=== PATIENT | male | born 1940 | race American Indian/Alaskan Native ===

== ENCOUNTER 2018-01-21 09:05 | Day surgery (SDC) | payer MEDICARE ==
[2018-01-21] MEDS ORDERED: Lidocaine 2% Jelly (Uro-Jet) ONE (10:06)
[2018-01-21] MEDS ORDERED: Iohexol 240 (50 ml) ONE (10:06)
[2018-01-21] MEDS ORDERED: cefTRIAXone IV 1 gm in Dextros 50 ML IVPB ONE (10:06)
[2018-01-21] MEDS ORDERED: Propofol 10 mg/ml Inj (20 ML) ONE (10:15)
[2018-01-21] MEDS ORDERED: Midazolam 2 MG/2 ML VIAL ONE (10:15)
[2018-01-21 11:17] VITALS: BMI 25.2
[2018-01-21] MEDS ORDERED: Oxycodone/Acetaminophen 5/325 mg Tab PO PRN (11:17)
[2018-01-21] MEDS ORDERED: HYDROmorphone 0.5 mg/0.5 ml ISec IVP PRN (11:33)
[2018-01-21 12:42] VITALS: RESP 16
--- NOTE | 2018-01-21 14:26 | RAD ---
Date of service: 01/21/2018 PROCEDURE: Intraoperative Fluoroscopy. HISTORY: HEMATURIA AND RETENTION FINDINGS: Fluoroscopic assistance was provided for left retrograde. Please refer to the operative report from TAYE Charlton, , MD [facility]. Total fluoroscopic time (continuous mode) utilized during the procedure 6.7 (seconds).
[2018-01-21 14:30] VITALS: BP 113/64; PULSE 62; TEMP 97.8; O2SAT 97
--- NOTE | 2018-01-21 14:37 | RAD ---
Date of service: 01/21/2018 HISTORY: HEMATURIA AND RETENTION COMPARISON: No prior. FINDINGS: BOWEL: Normal. No obstruction. No free air. BONES: Normal. OTHER FINDINGS: None. IMPRESSION: No significant or acute findings to account for/ related to the clinical presentation.
--- NOTE | 2018-01-21 23:04 | OP ---
Copied To: Ryan Goldberg MD Attending MD: Ryan Goldberg MD PROCEDURE DATE: 01/21/2018 PREOPERATIVE DIAGNOSES: Voiding dysfunction, decreased force of stream, nocturia, and hematuria. POSTOPERATIVE DIAGNOSES: Voiding dysfunction, decreased force of stream, nocturia, and hematuria. Visually occlusive prostate. No urethral strictures noted. No bladder cancer identified. PROCEDURES: Cystoscopy, bilateral retrograde pyelogram. The right retrograde does not fill out as well. There were no complications but the left side looks all normal. SURGEON: Ryan Goldberg MD ESTIMATED BLOOD LOSS: Less than 10 mL. SPECIMEN: None. COMPLICATIONS: There were no complications. FINDINGS: 1. Normal urethra with no strictures. The veru is visually occlusive but fairly large prostate. There is a good amount of intravesical lobe noted. The ureter orifice identified. The left side, the retrograde pyelogram was within normal limits. Right side, I was having difficulty getting the contrast done. We attempted gently but after trying I did not want to do any damage. 2. The bladder itself was inspected carefully. There is no bladder cancer identified. Just a visually occlusive prostate that is fairly juicy and bloody. See the plans listed at the end, but I am going to just mention here quickly. I believe, the patient will benefit from a transurethral resection of the prostate with a GreenLight laser. We will discuss with him other possibility. We will also discuss microwave thermal therapy if he going to tolerate this. He did not want a cystoscope in the office because he said that he does not want things placed in his private area. Further plans will follow. DESCRIPTION OF PROCEDURE: After obtaining informed consent, the patient was placed on the table, routine monitors were placed, time-out was called to confirm the patient and positioning. We introduced the cystoscope via the urethra. Antibiotic prophylaxis were used. We introduced the cystoscope via urethra under direct vision. There were no specific abnormalities. Anterior view is normal. No strictures, and the veru is visually occlusive. It is about 3 cm and it is fairly juicy, actually at this time passing the scope, there is a little blood noted. We identified the ureteral orifices. We inspected the bladder carefully. The bladder is not really trabeculated. No abnormalities appreciated. We identified the orifice, left retrograde pyelogram performed which is within normal limit. On the right side, the contrast did not go up as well . It was difficult to get the ____. I did not want to push any further. We inspected carefully. No abnormalities. Rectal exam has shown 20-30 grams of prostate, soft, smooth. No nodules. The patient tolerated the procedure well without complications. In summary, Mr. Lin is a very pleasant gentleman who has voiding dysfunction, decreased force of stream, nocturia, not responding to medical therapy. I am going to discuss with him the microwave thermal therapy. I am going to also discuss GreenLight Laser therapy. Further plans to follow. Ryan Goldberg MD
--- NOTE | 2018-01-21 23:34 | HP ---
Copied To: Ryan Goldberg MD Attending MD: Ryan Goldberg MD UROLOGY ADMISSION HISTORY AND PHYSICAL REASON FOR ADMISSION: Treatment of kidney stones. HISTORY OF PRESENT ILLNESS: Mr. Lin is a very pleasant gentleman who is 77 years old. He has voiding dysfunction and microhematuria, decreased force of stream, nocturia. Not responding well to medications. Here today for cysto and retrograde pyelogram. We evaluated prostate and then further plans will follow. He is here for cysto and retrograde pyelogram. PAST MEDICAL AND SURGICAL HISTORY: As listed on the chart. No history of HI or CVA. SOCIAL HISTORY: Unremarkable. MEDICATIONS: See the chart. ALLERGIES: NONE. REVIEW OF SYSTEMS: No weight loss, chest pain, or shortness of breath. PHYSICAL EXAMINATION: GENERAL: A well-nourished male, in no apparent distress. VITAL SIGNS: Within normal limits, included in the chart. LUNGS: Clear. ABDOMEN: Overall soft and nontender. No flank mass appreciated. GENITOURINARY: Normal male phallus without discharge. No testicular mass. RECTAL: Revealed 20 g prostate. Prostate is soft and smooth. LABORATORY DATA: See chart. BUN and creatinine noted. DIAGNOSES: Voiding dysfunction, likely hematuria, decreased force of stream, irritative and obstructive urinary complaints. A very pleasant 77-year-old gentleman who has the above history. He has voiding dysfunction, irritative and obstructive urinary complaints, more obstructive in nature. Decreased force of stream. Incomplete bladder emptying. Nocturia. Not responding well to medications. The plan for today is cystoscopy, retrograde pyelogram. Further plans will follow. ADDENDUM Risks and benefits were discussed with the patient at length. PLAN: As follows: 1. Antibiotic prophylaxis. 2. Cystoscopy. 3. Retrograde pyelogram. 4. Further plans may be a biopsy. ADDENDUM: See the operative report. We will discuss the options with the patient. We are going recommend to consider further therapy either with microwave thermal therapy or PVP GreenLight laser treatment. See the operative report. He has a visually occlusive prostate. Ryan Goldberg MD
== END 2018-01-21 13:31 | disposition home or self-care (01) ==
LOC: C.SDS 09:05
PROVIDERS: ATTEND Urology
DX: R31.29 Other microscopic hematuria (principal); R33.9 Retention of urine, unspecified; R35.1 Nocturia; N40.1 Benign prostatic hyperplasia with lower urinary tract symptoms
CPT/HCPCS: 52005; 74018; J0696; Q9966

== ENCOUNTER 2018-03-18 07:35 | Observation (INO) | payer MEDICARE ==
[2018-03-18] MEDS ORDERED: cefTRIAXone 1 gm 1 GM/100 ML BAG IVPB ONE (09:27)
[2018-03-18] MEDS ORDERED: Lidocaine 2% Jelly (Uro-Jet) ONE (09:27)
[2018-03-18] MEDS ORDERED: Propofol 10 mg/ml Inj (20 ML) ONE (09:32)
[2018-03-18] MEDS ORDERED: Midazolam 2 MG/2 ML VIAL ONE (09:32)
[2018-03-18] MEDS ORDERED: ePHEDrine 50 mg/ml Inj ONE (10:24)
[2018-03-18 11:12] LABS: HEMOGLOBIN 12.8 g/dL (12.0-18.0); MEAN CELL VOLUME 94.3 fL (80.0-94.0); MEAN CORPUSCULAR HEMOGLOBIN 31.6 pg (27.0-31.0); MEAN CORPUSCULAR HGB CONC 33.5 g/dL (33.0-37.0); RBC 4.03 Mil/uL (4.40-5.90); RED CELL DISTRIBUTION WIDTH 14.4 % (11.5-14.5)
[2018-03-18 11:25] LABS: ALB/GLOB RATIO 1.4 (1.0-2.1); ALBUMIN 3.6 g/dL (3.5-5.0); ALT/SGPT 25 U/L (21-72); AST/SGOT 18 U/L (17-59); BLOOD UREA NITROGEN 18 mg/dL (9-20); CALCIUM 8.8 mg/dl (8.6-10.4); GFR NON-AFRICAN AMERICAN 54
[2018-03-18] MEDS: HYDROmorphone 0.5 mg/0.5 ml ISec IVP PRN ×2 (11:34→12:41)
[2018-03-19] MEDS: Oxycodone/Acetaminophen 5/325 mg Tab PO PRN ×3 (00:09→20:14)
[2018-03-19 00:29] VITALS: RESP 20
[2018-03-20 04:32] VITALS: TEMP 98.6
[2018-03-20 08:17] VITALS: BP 146/77; PULSE 81; O2SAT 95
--- NOTE | 2018-03-22 09:45 | PN ---
DATE: 03/19/2018 See the operative note and the history and physical on 03/18/2018. The patient is resting comfortably. It is now 03/19/2018, postoperative day 1. He is still . The urine is essentially clear via the urethra. With the CBI, just barely dripping. I do not even think it is working, and I think it is dripping. It is still connected. See the plan forward. The patient has mild complaints of pain. Overall, within normal limits. He is currently sitting across the unit bed. The remainder of past medical and surgical is otherwise listed with no changes. The abdomen is overall soft. The patient is to have a bowel movement. DIAGNOSES: Voiding dysfunction, urine retention, incomplete bladder, and he is status post patient's preference, and he wants to go home without the catheter. So we feel a little uncomfortable to remove it at this point. PLAN: As follows: 1. Maintain the patient in the hospital. Need to monitor more closely. He does not feel comfortable to take the catheter home, but I feel uncomfortable to take it out, so medically we are going to keep him in the hospital for 1 more day. We will give him a trial of void on 03/20/2018 and see if he can void We are going to take it out at that point. We will also assist him with medication for a bowel movement, and then further plans will follow. I explained this to the patient at length. And as well explained to his daughter. So the plan is as follows: 1. Continue antibiotics. 2. Maintain the Avery. 3. Stop the CBI. 4. Milk of magnesia. 5. A trial of void on 03/20/2018, and then, subsequent plan for discharge home if everything is well. ADDENDUM: The patient was subsequently given a voiding trial on 03/20/2018, and he is being discharged home. Ryan Goldberg MD
--- NOTE | 2018-03-22 16:37 | HP ---
REASON FOR ADMISSION: Treatment of retention. HISTORY OF PRESENT ILLNESS: A very pleasant 77-year-old gentleman who has voiding dysfunction, decreased force of stream, nocturia, incomplete bladder emptying. We discussed various options. We tried medical therapy. It is not working well. After discussing further options, he is here today for a PVP GreenLight laser. PAST MEDICAL AND SURGICAL HISTORY: Listed on the chart. Medical clearance is also listed. No history of IN or CVA. SOCIAL HISTORY: Essentially unremarkable. MEDICATIONS: See chart. ALLERGIES: . Just want to make a note, he has got his medical clearance in the chart. That medical clearance notes to stop blood thinners. It is very difficulty to tell what he is taking or not and also he is somewhat confused. When questioned specifically on Plavix, it seems like he is taking a dose what he reports is every other day, on Thursday, Thursday, Thursday, three times a day, which would sound like some of the medication other than Plavix. There is nothing listed on the chart that indicates that he is taking the Plavix and then when he was asked he said he stopped taking it three days ago and then asked five days ago. See the plans listed below. But I do want to mention quickly while I am dictating now that during the procedure itself, see below the plans that we made the decision to proceed with the procedure, mostly at his request. There was not excessive bleeding at all. The remainder of the medications all listed. PHYSICAL EXAMINATION: GENERAL: Well-nourished male in no apparent distress. VITAL SIGNS: Noted to be within normal limits. LUNGS: Clear. HEART: Normal S1 and S2. ABDOMEN: Overall soft. Nontender. There is no evidence of distention. GENITOURINARY: He has normal phallus with no testicular masses. RECTAL: A 30 g prostate, soft and smooth. DIAGNOSES: Voiding dysfunction, decreased force of stream, obstructive and irritated complaining of incomplete bladder emptying. We discussed the options with the patient. Risks, benefits and alternatives were discussed at length. At this point, the plan is as follows: We are going to use GreenLight laser energy to scrape his prostate. We did discuss with the patient the risks, benefits, and treatment alternatives. We discussed the risks of bleeding. We discussed the possibility for rescheduling. The patient would like us to proceed. So, we are going to proceed. Again, it was difficult to assess his exact medications that he is currently taking or not. So towards this end, the plan is as follows: We made arrangements for the GreenLight energy. PLAN: As follows: 1. The patient will receive antibiotic prophylaxis. 2. We are going to proceed with photo vaporization, GreenLight laser and then further plans will follow. I explained to the patient given his age and given concerns of bleeding that after the procedure, most likely we will keep him in the hospital to monitor. See an addendum to this note and see the operative note: The procedure itself went well with minimal blood loss with the patient wide open. Given his age, medical condition, the questions about bleeding, we decided to keep him in the hospital. Ryan Goldberg MD
--- NOTE | 2018-03-22 20:33 | OP ---
PROCEDURE DATE: 03/18/2018 PREOPERATIVE DIAGNOSES: Urinary retention, voiding dysfunction, irritated and obstructive urinary complaints and incomplete bladder emptying. POSTOPERATIVE DIAGNOSES: Urinary retention, voiding dysfunction, irritated and obstructive urinary complaints and incomplete bladder emptying. PROCEDURE: Photovaporization and GreenLight laser energy used to do a transurethral resection of the prostate. COMPLICATIONS: There were no complications. BLOOD LOSS: Less than 25 mL. SURGEON: Ryan Goldberg MD At the termination, the incision from the verumontanum end is wide open. The veru is grossly intact. Landmarks are all intact. Ureteral orifices are intact. At the termination of the procedure, we stopped the irrigation and so there is no bleeding. Any bleeding that occurred during the procedure, we got with the coagulation. Essentially, no bleeding actually. At the termination, the patient was nicely wide open through the pictures and the chart. INDICATIONS: See history and physical for further details. In brief, it is a very pleasant 77-year-old gentleman, medical therapy is not working. We discussed options. He had decreased force of stream, irritated and obstructive complaints, more obstructive in nature. He is not happy with the results of the medication, so we discussed the options. I do want to mention briefly of medical clearance, the medical clearance discussed with staff and medications, same-day surgery, the preoperative teaching people also as well. The patient reports different answers to different questions regarding the use of Plavix. I had mentioned history and physical after discussing the options and discussing the possibility just to reschedule one with certainty of the medications. Really, it is not clear for we are going to proceed. I do want to mention that very briefly the patient after beginning with the laser, there is essentially really no bleeding as if he was on a medication. Therefore we proceeded gently and carefully and we did not go down to deep capsule, but we did open the patient wide open very nicely.. PROCEDURE: After obtaining informed consent, the patient the placed on the OR table. Routine monitor placed. Time-out was called that confirmed patient positioning and antibiotic prophylaxis. We could easily introduce the scope with the visual obturator. We identified a landmark to veru, it was visually occlusive, inspected 2 to 3 cm in length. Reasonably large. We identified the landmarks, ureteral orifices, and etc. We now began at 80 boc[address]egra. We actually kept it at 80 bocanegra the entire time for the slower low energy. To assess this with any form of bleeding. We started from 5 to 7 and opened it nicely demonstrating 7 and 11 and 5 through 1. He is open nicely and widely and there is almost no bleeding. We then turned our attention to our 11 to 1. We keep checking our landmarks and we worked our way all the way down to the veru. At this final procedure, the patient was nice widely open through the picture that are included in the chart. The patient tolerated the procedure without complication. ADDENDUM: Given the history, the questions and his age and medical conditions etc, we decided we are going to keep the patient overnight for a followup monitoring and then further plans will follow. Ryan Goldberg MD
--- NOTE | 2018-03-23 23:38 | CARD ---
APPROVED REPORT Date of service: 03/18/2018 EKG Measurement Heart [id number] <Conclusion> Normal sinus rhythm Normal ECG
== END 2018-03-20 14:50 | disposition home or self-care (01) ==
LOC: C.SDS 07:35 → C.9S 10:47 → C.6T 13:37
PROVIDERS: ADMIT Urology; ATTEND Urology
DX: R33.9 Retention of urine, unspecified (principal); R31.29 Other microscopic hematuria
CPT/HCPCS: 36415; 52648; 80053; 82948; 85027; 93005; G0378; J0696; J1170